=== PATIENT | male | born 1945 | race Caucasian/White ===

== ENCOUNTER → 2017-03-11 | Outpatient (CLI) | payer OTHER ==
[~2017-03-11] MED LIST: ASPI1TAB57 PO; ASPI81; BEDSIDE COMMODE1 MI1; CHOL5000 PO; GLUC500T4 PO; LEVO50TA4 PO; LOPE-1 PO; MELO15TA20 PO; OMEG100046 PO; PRIL20TA2; RANI300T PO; ROSU1TAB10 PO; ROSU5; TOPR25TA2; TURM500C3; VALS160T4 PO; WALKER WHEELS/F1 MIS
== END ==
LOC: CPRE 11:19
PROVIDERS: ATTEND Orthopaedic Surgery Orthopaedic Surgery of the Spine
DX: Z01.810 Encounter for preprocedural cardiovascular examination (principal); Z01.812 Encounter for preprocedural laboratory examination; M16.12 Unilateral primary osteoarthritis, left hip

== ENCOUNTER 2017-03-18 09:59 | Inpatient (IN) | payer OTHER, MEDICARE ==
[~2017-03-18 09:59] MED LIST changes: -ASPI81; -BEDSIDE COMMODE1 MI1; -LOPE-1 PO; -PRIL20TA2; -ROSU5; -TOPR25TA2; -WALKER WHEELS/F1 MIS
[2017-03-18] MEDS ORDERED: SODIUM CHLOR 0.9% 250 ML INJ 250 ML ONE (10:40)
[2017-03-18] MEDS ORDERED: ACETAMINOPHEN 1000 MG/100 ML 100 ML IV ONE (10:40)
[2017-03-18] MEDS ORDERED: VANCOMYCIN HCL 1000 MG VIAL ONE (10:40)
[2017-03-18] MEDS ORDERED: GENTAMICIN SULFATE 80 MG/2 ML VIAL ONE (10:47)
[2017-03-18] MEDS ORDERED: ceFAZolin 2 GM PREMIX 50 ML IV SCH (11:00)
[2017-03-18] MEDS ORDERED: CHLORHEXIDINE GLUCONATE 4% SOLN 120 ML BTL TOPICAL SCH (11:00)
[2017-03-18] MEDS ORDERED: LACTATED RINGER'S 1000 ML IV PRN (11:00)
[2017-03-18] MEDS ORDERED: METOPROLOL TARTRATE 25 MG TAB PO PRN (11:00)
[2017-03-18] MEDS ORDERED: SODIUM CHLORID 0.9% 500 ML IV PRN (11:00)
[2017-03-18] MEDS ORDERED: VANCOMYCIN 1000 MG/NS 250 ML (for <70 kg) IV SCH ×2 (11:00)
[2017-03-18] MEDS ORDERED: POVIDONE IODINE 5% (ANTISEPSIS KIT) 4 APPLICATIONS EACH NARE PRN (11:00)
[2017-03-18] MEDS ORDERED: CHLORHEXIDINE GLUCONATE 2 % 1 PACK (2 CLOTHS) TOPICAL PRN (11:00)
[2017-03-18] MEDS ORDERED: MIDAZOLAM HCL 2 MG/2 ML VIAL IV ONE (12:00)
[2017-03-18] MEDS ORDERED: DEXAMETHASONE SOD PHOS 4 MG/ML VIAL IV ONE (12:00)
[2017-03-18] MEDS ORDERED: LIDOCAINE HCL 1% PF 5 ML SYRINGE OTHER ONE (12:00)
[2017-03-18] MEDS ORDERED: GLYCOPYRROLATE 1 MG/5 ML SYRINGE IV PUSH ONE (12:00)
[2017-03-18] MEDS ORDERED: PROPOFOL 200 MG/20 ML AMP IV ONE (12:00)
[2017-03-18] MEDS ORDERED: ONDANSETRON HCL 4 MG/2 ML VIAL IV PUSH ONE (12:00)
[2017-03-18] MEDS ORDERED: ePHEDrine/NS 25 MG/5 ML SYR IV ONE (12:00)
[2017-03-18] MEDS ORDERED: PHENYLEPH/NS 1000 MCG/10 ML SYR IV ONE (12:00)
[2017-03-18] MEDS ORDERED: NEOSTIGMINE 3 MG/3 ML SYR IV ONE (12:00)
[2017-03-18] MEDS ORDERED: DO NOT ADM ANY ANTICOAGULANT DRUGS PRN (14:40)
--- NOTE | 2017-03-18 14:42 | HHI.PR ---
Immediate Post Op Note Procedure Date: Mar 18, 2017 Pre Op Diagnosis: R Hip Severe OA;Acet Dysplasia Post Op Diagnosis: Same Surgeon: Omar Dueñas MD Boat Cleaning Supervisor(s): Yeimy Pereyra PA-C Procedure: R THR Complications: None Specimen(s) removed: None Estimated blood loss: 400cc Anesthesia: General Drains: None Patient to: PACU Patient Condition: Good Implant/Devices: SEE IMPLANT LOG (if applicable) Date/Time of Procedure: SEE SURGICAL CARE RECORD Omar Dueñas MD Mar 18, 2017 14:42
--- NOTE | 2017-03-18 14:43 | HHI.FF ---
Face to Face Verification Diagnosis: (1) Osteoarthritis of right hip Physical Therapy Gait training, Transfer training, bed to chair Hip: Total hip, Protocol: Right, Posterior hip precautions Right LE Weight Bearing: WB as tolerated Left LE Weight Bearing: WB as tolerated Nursing RN Days per Week: 3 x Week(s): 4 Nursing: Dressing changes (clean incision with alcohol and apply dry, sterile dresing) Additional Instructions PT/INR q Saturday and , call/text results to [facility] [phone] Goal INR 1.5-1.8 I have seen patient Ray Clark on 03/18/17. My clinical findings support the need for the requested home health care services because: High risk of falls I certify that my clinical findings support that this patient is homebound because: Post-op weakness Omar Dueñas MD Mar 18, 2017 14:43
[2017-03-18] MEDS ORDERED: WALKER WHEELS/F1 MIS (14:44)
[2017-03-18] MEDS ORDERED: BEDSIDE COMMODE1 MI1 (14:44)
[2017-03-18] MEDS ORDERED: ALUMINUM/MAGNESIUM/SIMETH 30 ML CUP PO PRN (14:45)
[2017-03-18] MEDS ORDERED: ACETAMINOPHEN/HYDROcodone 325 MG/7.5 MG TAB PO PRN (14:45)
[2017-03-18] MEDS ORDERED: Post-op Orders (for Pharmacy) MISC XX ONE (14:45)
[2017-03-18] MEDS: SODIUM CHLORIDE 0.9% FLUSH 5 ML FLUSH IVF SCH ×2 (14:45→19:52)
[2017-03-18] MEDS ORDERED: SODIUM CHLORIDE 0.9% FLUSH 5 ML FLUSH IVF PRN (14:45)
[2017-03-18] MEDS ORDERED: ONDANSETRON HCL 4 MG/2 ML VIAL IVP PRN (14:45)
[2017-03-18] MEDS: LACTATED RINGER'S 1000 ML INJ 1,000 ML IV SCH (15:00)
--- NOTE | 2017-03-18 15:30 | MP ---
cc: NU WEIR M.D., MARGARET M.D. DATE OF SURGERY: 03/18/2017 PREOPERATIVE DIAGNOSIS Right hip severe osteoarthritis, acetabular dysplasia. POSTOPERATIVE DIAGNOSIS Right hip severe osteoarthritis, acetabular dysplasia. PROCEDURE Right total hip arthroplasty. SURGEON ASpenser MD. EQUIPMENT OPERATOR INTERMODAL YARD Yeimy Pereyra PA-C. ESTIMATED BLOOD LOSS 400 cc. SPECIMEN None. COMPLICATIONS None. ANESTHESIA General. DRAINS None. CONDITION Stable. PLAN OF ACTIVITY As per orders. DETAILS OF PROCEDURE My unit assistant, AVANI Yarbrough, was present for the entire surgical case. She was medically necessary for the entire case because of the complexity of the case and to facilitate the performance of the procedure. The WOOD HEEL FLAP INSERTER at the back table did not have the skill set for this case to manipulate the instruments, e.g., multiple different types of soft tissue retractors, trial implants and permanent implants. The patient was brought into the operating room, had satisfactory anesthesia by Dr. Victoria of the department of anesthesia. The patient was placed in a lateral decubitus position. All pressure points were well-padded. The right hip and lower extremity down to including the toes were prepped and draped in the usual sterile manner. A small posterolateral exposure to the hip was made. All bleeders were individually coagulated. Dissection continued through skin and subcutaneous tissue. The fascia kristin and gluteus christiane was incised in line with the skin incision. A Charnley retractor was placed into the wound to allow better exposure. Great care was made to protect the sciatic nerve. The short external rotators were removed as a group. The hip abductors were preserved. A capsulotomy was performed and the hip was dislocated posteriorly. The patient was found to have severe osteoarthritis involving the hip joint with acetabular dysplasia. Osteotomy on the neck was made at appropriate level. Exposure of the acetabulum was made. The capsule was removed as was the acetabular labrum. Using hemispherical reamers the hip was initially deepened and then reamed to 53 mm in outer diameter. A bicentric Press-Fit type cup was found to be stable and satisfactory. Exposure of the femoral shaft was made. Using the [employer] system it was sequentially broached to a #12 broach. Trial reduction was made with the standard offset, 0 neck, 28 mm ball. The hip was reduced. The patient was found to have satisfactory limb lengths, satisfactory stability and satisfactory range of motion. The hip was then dislocated posteriorly. The #12 standard offset stem was then placed in approximately 15-20 degrees of anteversion with an excellent "fit and fill." A 0 neck, 28 mm ball was assembled onto the trunnion. The hip was then reduced. Again, the patient was found to have satisfactory limb lengths, satisfactory range of motion and satisfactory stability of the hip. Posterior osteophyte was removed off of the acetabulum to prevent postoperative impingement. The short external rotators were repaired as a group with drill holes to the greater trochanter using #2 Tycron suture. The fascia kristin and gluteus christiane was closed with #2 Tycron suture. The subcutaneous tissue was closed in layers with 0 Vicryl and 2-0 Vicryl. The skin was approximated with running subcuticular 2-0 nylon. Sterile dressing was applied. The patient tolerated the procedure well and arrived in the recovery room in stable and satisfactory condition. MD CHERYLE Gunn/HERIBERTO /2:41 PM /3:19 PM
--- NOTE | 2017-03-18 15:44 | RADRPT ---
EXAM DATE/TIME: 03/18/2017 14:56 [place] COMPARISON: No previous studies available for comparison. INDICATIONS : Hardware placement right hip MEDICAL HISTORY : Arthritis. SURGICAL HISTORY : None. ENCOUNTER: Initial ACUITY: 1 day PAIN SCORE: Non-responsive. LOCATION: Right Hip FINDINGS: Status post left hip arthroplasty. The arthroplasty components are in anatomic alignment. No signific ant acute fracture. Remaining osseous structures are intact. CONCLUSION: 1. Status post left hip arthroplasty in anatomic alignment without acute fracture. Allen Kay MD on March 18, 2017 at 15:41 Board Certified Radiologist. This report was verified electronically.
[2017-03-18 15:54] VITALS: BP 140/66; PULSE 56; RESP 17; TEMP 95.8
[2017-03-18] MEDS ORDERED: BISACODYL 10 MG SUPP RECTAL PRN (18:15)
[2017-03-18] MEDS ORDERED: SENNOSIDES 8.6 MG TAB PO PRN (18:15)
[2017-03-18] MEDS ORDERED: LACTULOSE SYRUP 20 GM/30 ML CUP PO PRN (18:15)
--- NOTE | 2017-03-18 18:17 | PD.CONS ---
[facility] By Dr. Vicente Reason for Consult Assist with medical management Primary Care Physician Renee Arias MD Diagnoses: History of Present Illness Patient is a 72-year-old male with primary medical history of HTN, hypothyroidism, arthritis, HLD, history of intestinal cancer who came into the hospital for an elective procedure for his right hip. Patient has been complaining of right hip pain 3 years and has been on and off meloxicam. States meloxicam elevates his blood pressure that he was referred to orthopedic surgeon. Patient is status post right hip total arthroplasty. States he is doing well. Pain is manageable. States that he already ambulated with physical therapy. Denies pain and discomfort. Denies SOB/ dyspnea. Denies chest pain, palpitations, headaches, dizziness. Denies fevers, chills, n/v/d. Denies dysuria. Review of Systems Constitutional: DENIES: Diaphoretic episodes, Fatigue Endocrine: DENIES: Heat/cold intolerance, Polydipsia Eyes: DENIES: Blurred vision, Diplopia Ears, nose, mouth, throat: DENIES: Tinnitus, Hearing loss, Odynophagia Respiratory: DENIES: Apneas, Cough Cardiovascular: DENIES: Chest pain, Palpitations Gastrointestinal: DENIES: Abdominal pain, Black stools Genitourinary: DENIES: Sexual dysfunction, Urinary frequency Musculoskeletal: COMPLAINS OF: Joint pain, Muscle aches Integumentary: DENIES: Abnormal pigmentation Hematologic/lymphatic: DENIES: Bruising, Lymphadenopathy Immunologic/allergic: DENIES: Eczema Neurologic: DENIES: Abnormal gait, Headache Psychiatric: DENIES: Anxiety, Confusion Except as stated in HPI: all other systems reviewed are Neg Past Family Social History Allergies: Coded Allergies: morphine (Verified Allergy, Severe, Itching, 03/18/17) with epidural Past Medical History HTN Hypothyroidism Arthritis History of CA HLD History of intestinal cancer Sleep apnea Past Surgical History Colon resection CABG in 1996 Stent placements Hemorrhoidectomy Reported Medications Reported Meds & Active Scripts Active Reported Vitamin D3 (Cholecalciferol) 5,000 Unit Cap 5,000 Units PO DAILY Fish Oil 1,000 mg Softgel ([place]-3/Dha/Epa/Fish Oil) 1,000 Mg (120 Mg-180 Mg) Capsule 1 Cap PO BID Ranitidine (Ranitidine HCl) 300 Mg Tab 300 Mg PO HS Meloxicam 15 Mg Tab 15 Mg PO DAILY PRN Aspirin 81 (Aspirin) 81 Mg Tabdr 81 Mg PO DAILY Rosuvastatin (Rosuvastatin Calcium) 40 Mg Tab 40 Mg PO DAILY Levothyroxine (Levothyroxine Sodium) 50 Mcg Tab 50 Mcg PO DAILY Valsartan-Hydrochlorothiazide 160-12.5 Mg Tab 1 Tab PO DAILY Active Ordered Medications Current Medications Medications (Trade) Dose Ordered Sig/Vianey Route Start Time Stop Time Status Last Admin Lactated Ringer's 1,000 ml @ 30 mls/hr Q24H PRN IV 03/18/17 11:00 03/21/17 10:59 Sodium Chloride 500 ml @ 30 mls/hr [id number] PRN IV 03/18/17 11:00 03/21/17 10:59 (Lopressor) 25 mg STEAM PLANT OPERATOR PRN PO 03/18/17 11:00 03/21/17 10:59 (Betadine 5% Antisepsis Kit) 1 applic STEAM PLANT OPERATOR PRN EACH NARE 03/18/17 11:00 03/21/17 10:59 (Chlorhexidine 2% Cloth) 3 pack STEAM PLANT OPERATOR PRN TOPICAL 03/18/17 11:00 03/21/17 10:59 (Hibiclens 4% Top Soln) 1 applic ONCE TOPICAL 03/18/17 11:00 03/21/17 10:59 Cefazolin Sodium/ Dextrose 50 ml @ 100 mls/hr STEAM PLANT OPERATOR IV 03/18/17 11:00 03/21/17 10:59 03/18/17 13:41 Vancomycin HCl 1000 mg/Sodium Chloride 250 ml @ 250 mls/hr STEAM PLANT OPERATOR IV 03/18/17 11:00 03/21/17 10:59 (Synthroid) 50 mcg DAILY@0600 PO 03/19/17 06:00 (Pepcid) 20 mg BID PO 03/19/17 09:00 (Lipitor) 80 mg DAILY PO 03/19/17 09:00 Lactated Ringer's 1,000 ml @ 80 mls/hr [id number] IV 03/18/17 16:00 03/18/17 15:00 (NS Flush) 2 ml UNSCH PRN IVF 03/18/17 14:45 (NS Flush) 2 ml BID IVF 03/18/17 14:45 Cefazolin Sodium 1000 mg/Sodium Chloride 100 ml @ 200 mls/hr Q6H IV 03/18/17 20:00 03/19/17 08:29 (Coumadin) Follow Sliding Scale... DAILY@1600 PO 03/19/17 16:00 (Coumadin Booklet) 1 ONCE ONCE XX 03/19/17 16:00 03/19/17 16:01 (Dilaudid Pf Inj) 1 mg Q3H PRN IV PUSH 03/18/17 14:45 ([place] 7.5-325 Mg) 1 tab Q4H PRN PO 03/18/17 14:45 ([place] 7.5-325 Mg) 2 tab Q4H PRN PO 03/18/17 14:45 (Zofran Inj) 4 mg Q6H PRN IVP 03/18/17 14:45 (Colace) 100 mg BID PO 03/19/17 21:00 (Mag-Al Plus Susp Liq) 30 ml Q6H PRN PO 03/18/17 14:45 (Ambien) 5 mg HS PRN PO 03/18/17 21:00 Miscellaneous Information ALL NURSING DEPARTME... UNSCH PRN .XX 03/18/17 14:40 03/19/17 14:39 (Diovan) 160 mg DAILY PO 03/19/17 09:00 (Microzide) 12.5 mg DAILY PO 03/19/17 09:00 Family History Sister had leukemia Mother has Lori Gehrig's disease at age 73 Social History Rare alcohol use Cigar smoker, 40 years Denies illicit drug use Physical Exam Vital Signs Vital Signs Date Time Temp Pulse Resp B/P (MAP) Pulse Ox O2 Delivery O2 Flow Rate FiO2 03/18/17 15:54 95.8 56 17 140/66 (90) 03/18/17 15:22 60 14 138/75 (96) 97 Room Air 03/18/17 15:15 97.4 56 17 133/72 (92) 96 Room Air 03/18/17 15:00 69 15 138/73 (94) 96 Room Air 03/18/17 14:45 76 18 140/70 (93) 98 Room Air 03/18/17 14:40 97.4 74 20 143/69 (93) 99 Simple Mask 6 Physical Exam GENERAL: This is a well-nourished, well-developed patient, in no apparent distress. SKIN: No rashes, ecchymoses or lesions. Cool and dry. HEAD:Normocephalic. No temporal or scalp tenderness. EYES: Pupils equal round and reactive. Extraocular motions intact. No scleral icterus. No injection or drainage. ENT: Nose without bleeding. Throat without erythema. Uvula midline. Airway patent. NECK: Trachea midline. No JVD or lymphadenopathy. Supple, nontender, no meningeal signs. CARDIOVASCULAR: Regular rate and rhythm with 2/6 murmurs. No gallops, or rubs. RESPIRATORY: Clear to auscultation. Breath sounds equal bilaterally. No wheezes , rales, or rhonchi. GASTROINTESTINAL: Abdomen soft, non-tender, nondistended. No guarding. Hypoactive BS MUSCULOSKELETAL: Extremities without clubbing, cyanosis. Right Hip Dsg CDI, trace edema. NEUROLOGICAL: Awake and alert. Oriented to person, place, time. Motor and sensory grossly within normal limits. Normal speech. Imaging Last Impressions Hip and Pelvis X-Ray 03/18/17 0000 Signed Impressions: Service Date/Time: Saturday, March 18, 2017 14:56 - CONCLUSION: 1. Status post left hip arthroplasty in anatomic alignment without acute fracture. Allen Kay MD Assessment and Plan Problem List: (1) Status post right hip replacement ICD Code: Z96.641 - Presence of right artificial hip joint Status: Acute (2) HTN (hypertension) ICD Code: I10 - Essential (primary) hypertension Status: Chronic (3) Hypothyroidism ICD Code: E03.9 - Hypothyroidism, unspecified Status: Chronic (4) Osteoarthritis of right hip ICD Code: M16.11 - Unilateral primary osteoarthritis, right hip Assessment and Plan Patient is a 72-year-old male with primary medical history of HTN, hypothyroidism, arthritis, HLD, history of intestinal cancer who came into the hospital for an elective procedure for his right hip. Status post right total hip arthroplasty - Right hip arthritis - Managed primarily by Dr. Panchal orthopedic team - Physical therapy eval and treat - Pain management O'Brien when necessary, Dilaudid IV for breakthrough pain. Monitor for constipation - Place on bowel regimen. - Monitor H&H. HTN, chronic History of CA, history of CABG History HLD - Continue home medication hydrochlorothiazide 12.5 mg daily, valsartan 160 mg daily - Monitor BP trend Hypothyroidism - Continue home medication levothyroxine 50 g daily - Check TSH Chronic constipation History of intestinal cancer with colon resection - Bowel regimen as above DVT prop Coumadin GI prop Pepcid The exam, history, and the medical decision-making described in the above note were completed with the assistance of the mid-level provider. I reviewed and agree with the findings presented. I attest that I had a [id number] encounter with the patient on the same day, and personally performed and documented my assessment and findings in the medical record. Code Status Full code Discussed Condition With Patient, nursing, Dr. Fletcher Problem Qualifiers (1) Osteoarthritis of right hip: Qualified Codes: M16.11 - Unilateral primary osteoarthritis, right hip Monica Washington Mar 18, 2017 18:17 Rishabh Fletcher DO Mar 18, 2017 19:35
[2017-03-18 19:00] VITALS: BP 121/69; PULSE 73; RESP 16; TEMP 98.1; O2SAT 98
[2017-03-18] MEDS: MAGNESIUM HYDROXIDE SUSP 30 ML CUP PO PRN (19:51)
[2017-03-18] MEDS ORDERED: ZOLPIDEM TARTRATE 5 MG TAB PO PRN (21:00)
[2017-03-19] VITALS (8 sets, daily range): BP systolic 101–128; BP diastolic 58–66; PULSE 70–88; RESP 16–19; TEMP 96.6–98.4; O2SAT 96–97
[2017-03-19] MEDS: LACTATED RINGER'S 1000 ML INJ 1,000 ML IV SCH ×2 (04:30→16:51)
[2017-03-19] MEDS: LEVOTHYROXINE SODIUM 50 MCG TAB PO SCH (05:50)
[2017-03-19 05:52] LABS: AUTOMATED NEUTROPHIL # 6.6 TH/MM3 (1.8-7.7); BASOPHIL % 0.3 % (0.0-2.0); EOSINOPHIL % 0.1 % (0.0-4.0); HEMATOCRIT 33.5 % (39.0-51.0); HEMO FLAGS DIFF FINAL; LYMPH % 12.6 % (9.0-44.0); LYMPHOCYTE # 1.1 TH/MM3 (1.0-4.8); MEAN CELL VOLUME 87.9 FL (80.0-100.0); MEAN CORPUSCULAR HEMOGLOBIN 30.2 PG (27.0-34.0); MEAN CORPUSCULAR HGB CONC 34.3 % (32.0-36.0); MONO % 11.5 % (0.0-8.0); NEUT % 75.5 % (16.0-70.0); PLATELET COUNT 171 TH/MM3 (150-450); RED BLOOD COUNT 3.82 MIL/MM3 (4.50-5.90); RED CELL DISTRIBUTION WIDTH 13.3 % (11.6-17.2); WHITE BLOOD COUNT 8.7 TH/MM3 (4.0-11.0)
[2017-03-19 05:58] LABS: INTERNATIONAL NORMALIZED RATIO 1.2 RATIO; PROTHROMBIN TIME - PATIENT 13.7 SEC (9.8-11.6)
[2017-03-19 06:12] LABS: ALT (GPT) 21 U/L (12-78); ANION GAP 9 MEQ/L (5-15); AST (GOT) 25 U/L (15-37); BICARBONATE 26.6 MEQ/L (21.0-32.0); BLOOD UREA NITROGEN 14 MG/DL (7-18); CHLORIDE 101 MEQ/L (98-107); GLOMERULAR FILTRATION RATE 79 ML/MIN (>89); MAGNESIUM 2.2 MG/DL (1.5-2.5); POTASSIUM 3.8 MEQ/L (3.5-5.1); SODIUM (NA) 137 MEQ/L (136-145)
[2017-03-19 06:20] LABS: ALKALINE PHOSPHATASE 55 U/L (45-117); FREE T4 1.46 NG/DL (0.76-1.46); TOTAL BILIRUBIN ADULT 0.6 MG/DL (0.2-1.0)
--- NOTE | 2017-03-19 07:13 | PD.ORT.PN ---
Subjective Subjective Remarks POD#1 R THR C/O slight light headness while OOB this AM C/O mild post op hip pain No SOB;no chest pain Objective Vitals Vital Signs Date Time Temp Pulse Resp B/P (MAP) Pulse Ox O2 Delivery O2 Flow Rate FiO2 03/19/17 04:00 96.6 74 16 96 03/19/17 00:00 96.6 88 17 110/62 (78) 97 03/18/17 19:00 98.1 73 16 121/69 (86) 98 03/18/17 15:54 95.8 56 17 140/66 (90) 03/18/17 15:22 60 14 138/75 (96) 97 Room Air 03/18/17 15:15 97.4 56 17 133/72 (92) 96 Room Air 03/18/17 15:00 69 15 138/73 (94) 96 Room Air 03/18/17 14:45 76 18 140/70 (93) 98 Room Air 03/18/17 14:40 97.4 74 20 143/69 (93) 99 Simple Mask 6 I/O 03/18/17 03/18/17 03/18/17 03/19/17 03/19/17 03/19/17 07:00 15:00 23:00 07:00 15:00 23:00 Intake Total 1400 ml 580 ml 580 ml Output Total 400 ml Balance 1000 ml 580 ml 580 ml Intake Oral 480 ml 480 ml IV Total 100 ml 100 ml Other 1400 ml Output Estimated Blood Loss 400 ml # Voids 3 32 # Bowel Movements 0 0 Result Diagram: 03/19/17 0454 03/19/17 0454 Other Results Laboratory Tests Test 03/19/17 04:54 Prothromb Time International Ratio 1.2 RATIO Prothrombin Time 13.7 SEC (9.8-11.6) Objective Remarks N/V intact Dressings dry No LLD Assessment & Plan Assessment and Plan Ortho stable Coumadin,TEDS,Sequentials for DVT prophylaxsis PT/rehab Discharge home tomorrow if medically stable Hold Anti-HT Rx this AM Omar Dueñas MD Mar 19, 2017 07:13
[2017-03-19] MEDS: HYDROCHLOROTHIAZIDE 12.5 MG CAP PO SCH (07:27)
[2017-03-19] MEDS: VALSARTAN 160 MG TAB PO SCH (07:27)
[2017-03-19] MEDS ORDERED: NON-FORMULARY DRUG (Valsartan-Hydrochlorothiazide 1 TAB) PO SCH (09:00)
[2017-03-19] MEDS: SODIUM CHLORIDE 0.9% FLUSH 5 ML FLUSH IVF SCH ×2 (09:00→22:19)
[2017-03-19] MEDS: ATORVASTATIN 80 MG TAB PO SCH (09:07)
[2017-03-19] MEDS: FAMOTIDINE 20 MG TAB PO SCH ×2 (09:07→22:18)
[2017-03-19 13:01] LABS: HEMOGLOBIN A1a 1.3 %; HEMOGLOBIN A1b 0.9 %; HEMOGLOBIN Ao 84.3 %; HEMOGLOBIN F 1.1 %; HEMOGLOBIN LA1C 2.4 %
[2017-03-19] MEDS: HYDROmorphone HCL PF 2 MG/ML VIAL IV PUSH PRN ×2 (14:58→22:20)
--- NOTE | 2017-03-19 15:23 | HHI.PR ---
Subjective Remarks Patient states he became dizzy when he got up today. Denies cp/sob. Pain is controlled at this time. afebrile. Objective Vitals Vital Signs Date Time Temp Pulse Resp B/P (MAP) Pulse Ox O2 Delivery O2 Flow Rate FiO2 03/19/17 09:58 97 03/19/17 04:00 96.6 74 16 96 03/19/17 00:00 96.6 88 17 110/62 (78) 97 03/18/17 19:00 98.1 73 16 121/69 (86) 98 03/18/17 15:54 95.8 56 17 140/66 (90) 03/18/17 15:22 60 14 138/75 (96) 97 Room Air I/O 03/18/17 03/18/17 03/18/17 03/19/17 03/19/17 03/19/17 06:59 14:59 22:59 06:59 14:59 22:59 Intake Total 1400 ml 580 ml 580 ml 100 ml Output Total 400 ml Balance 1000 ml 580 ml 580 ml 100 ml Intake Oral 480 ml 480 ml IV Total 100 ml 100 ml 100 ml Other 1400 ml Output Estimated Blood Loss 400 ml # Voids 3 32 # Bowel Movements 0 0 Result Diagram: 03/19/17 0454 03/19/17 0454 Imaging Last Impressions Hip and Pelvis X-Ray 03/18/17 0000 Signed Impressions: Service Date/Time: Saturday, March 18, 2017 14:56 - CONCLUSION: 1. Status post left hip arthroplasty in anatomic alignment without acute fracture. Allen Kay MD Objective Remarks GENERAL: This is a well-nourished, well-developed patient, in no apparent distress. SKIN: No rashes, ecchymoses or lesions. Cool and dry. HEAD:Normocephalic. No temporal or scalp tenderness. EYES: Pupils equal round and reactive. Extraocular motions intact. No scleral icterus. No injection or drainage. ENT: Nose without bleeding. Throat without erythema. Uvula midline. Airway patent. NECK: Trachea midline. No JVD or lymphadenopathy. Supple, nontender, no meningeal signs. CARDIOVASCULAR: Regular rate and rhythm with 2/6 murmurs. No gallops, or rubs. RESPIRATORY: Clear to auscultation. Breath sounds equal bilaterally. No wheezes , rales, or rhonchi. GASTROINTESTINAL: Abdomen soft, non-tender, nondistended. No guarding. Hypoactive BS MUSCULOSKELETAL: Extremities without clubbing, cyanosis. Right Hip Dsg CDI, trace edema. NEUROLOGICAL: Awake and alert. Oriented to person, place, time. Motor and sensory grossly within normal limits. Normal speech. Medications and IVs Current Medications Medications (Trade) Dose Ordered Sig/Vianey Route Start Time Stop Time Status Last Admin Lactated Ringer's 1,000 ml @ 30 mls/hr Q24H PRN IV 03/18/17 11:00 03/21/17 10:59 Sodium Chloride 500 ml @ 30 mls/hr [id number] PRN IV 03/18/17 11:00 03/21/17 10:59 (Lopressor) 25 mg MANAGER UROLOGY PRN PO 03/18/17 11:00 03/21/17 10:59 (Betadine 5% Antisepsis Kit) 1 applic MANAGER UROLOGY PRN EACH NARE 03/18/17 11:00 03/21/17 10:59 (Chlorhexidine 2% Cloth) 3 pack MANAGER UROLOGY PRN TOPICAL 03/18/17 11:00 03/21/17 10:59 (Hibiclens 4% Top Soln) 1 applic ONCE TOPICAL 03/18/17 11:00 03/21/17 10:59 Cefazolin Sodium/ Dextrose 50 ml @ 100 mls/hr MANAGER UROLOGY IV 03/18/17 11:00 03/21/17 10:59 03/18/17 13:41 Vancomycin HCl 1000 mg/Sodium Chloride 250 ml @ 250 mls/hr MANAGER UROLOGY IV 03/18/17 11:00 03/21/17 10:59 (Synthroid) 50 mcg DAILY@0600 PO 03/19/17 06:00 03/19/17 05:50 (Pepcid) 20 mg BID PO 03/19/17 09:00 03/19/17 09:07 (Lipitor) 80 mg DAILY PO 03/19/17 09:00 03/19/17 09:07 Lactated Ringer's 1,000 ml @ 80 mls/hr [id number] IV 03/18/17 16:00 03/18/17 15:00 (NS Flush) 2 ml UNSCH PRN IVF 03/18/17 14:45 (NS Flush) 2 ml BID IVF 03/18/17 14:45 03/19/17 09:00 (Coumadin) Follow Sliding Scale... DAILY@1600 PO 03/19/17 16:00 (Coumadin Booklet) 1 ONCE ONCE XX 03/19/17 16:00 03/19/17 16:01 (Dilaudid Pf Inj) 1 mg Q3H PRN IV PUSH 03/18/17 14:45 03/19/17 14:58 ([place] 7.5-325 Mg) 1 tab Q4H PRN PO 03/18/17 14:45 ([place] 7.5-325 Mg) 2 tab Q4H PRN PO 03/18/17 14:45 (Zofran Inj) 4 mg Q6H PRN IVP 03/18/17 14:45 (Colace) 100 mg BID PO 03/19/17 21:00 (Mag-Al Plus Susp Liq) 30 ml Q6H PRN PO 03/18/17 14:45 (Ambien) 5 mg HS PRN PO 03/18/17 21:00 (Diovan) 160 mg DAILY PO 03/19/17 09:00 (Microzide) 12.5 mg DAILY PO 03/19/17 09:00 (Milk Of Magnesia Liq) 30 ml Q12H PRN PO 03/18/17 18:15 03/18/17 19:51 (Senokot) 17.2 mg Q12H PRN PO 03/18/17 18:15 (Dulcolax Supp) 10 mg DAILY PRN RECTAL 03/18/17 18:15 (Lactulose Liq) 30 ml DAILY PRN PO 03/18/17 18:15 A/P Problem List: (1) Status post right hip replacement ICD Code: Z96.641 - Presence of right artificial hip joint Status: Acute (2) HTN (hypertension) ICD Code: I10 - Essential (primary) hypertension Status: Chronic (3) Hypothyroidism ICD Code: E03.9 - Hypothyroidism, unspecified Status: Chronic (4) Osteoarthritis of right hip ICD Code: M16.11 - Unilateral primary osteoarthritis, right hip Assessment and Plan Patient is a 72-year-old male with primary medical history of HTN, hypothyroidism, arthritis, HLD, history of intestinal cancer who came into the hospital for an elective procedure for his right hip. Status post right total hip arthroplasty - Right hip arthritis - Managed primarily by Dr. Panchal orthopedic team - Physical therapy eval and treat - Pain management [place] when necessary, Dilaudid IV for breakthrough pain. Monitor for constipation - Place on bowel regimen. - Monitor H&H. HTN, chronic History of [place], history of CABG History HLD - Continue home medication hydrochlorothiazide 12.5 mg daily, valsartan 160 mg daily - Monitor BP trend - check orthostatics since patient felt dizzy upon standing. Hypothyroidism - Continue home medication levothyroxine 50 g daily - Check TSH Chronic constipation History of intestinal cancer with colon resection - Bowel regimen as above DVT prop Coumadin GI prop Pepcid Problem Qualifiers (1) Osteoarthritis of right hip: Qualified Codes: M16.11 - Unilateral primary osteoarthritis, right hip Clay Welch MD Mar 19, 2017 15:23
[2017-03-19] MEDS: WARFARIN SOD 5 MG TAB PO SCH (16:23)
--- NOTE | 2017-03-19 20:22 | HHI.PR ---
Subjective Remarks NOT seen Objective Vitals Vital Signs Date Time Temp Pulse Resp B/P (MAP) Pulse Ox O2 Delivery O2 Flow Rate FiO2 03/19/17 16:00 97.1 72 16 128/59 (82) 96 03/19/17 15:28 16 03/19/17 12:00 98.4 70 16 125/63 (83) 97 03/19/17 09:58 97 03/19/17 08:00 96.7 86 16 101/58 (72) 97 03/19/17 04:00 96.6 74 16 96 03/19/17 00:00 96.6 88 17 110/62 (78) 97 I/O 03/18/17 03/18/17 03/18/17 03/19/17 03/19/17 03/19/17 07:00 15:00 23:00 07:00 15:00 23:00 Intake Total 1400 ml 580 ml 580 ml 700 ml Output Total 400 ml 800 ml Balance 1000 ml 580 ml 580 ml -100 ml Intake Oral 480 ml 480 ml 600 ml IV Total 100 ml 100 ml 100 ml Other 1400 ml Output Urine Total 800 ml Estimated Blood Loss 400 ml # Voids 3 32 # Bowel Movements 0 0 0 Result Diagram: 03/19/17 0454 03/19/17 0454 Imaging Last Impressions Hip and Pelvis X-Ray 03/18/17 0000 Signed Impressions: Service Date/Time: Saturday, March 18, 2017 14:56 - CONCLUSION: 1. Status post left hip arthroplasty in anatomic alignment without acute fracture. Allen Kay MD Objective Remarks GENERAL: This is a well-nourished, well-developed patient, in no apparent distress. SKIN: No rashes, ecchymoses or lesions. Cool and dry. HEAD:Normocephalic. No temporal or scalp tenderness. EYES: Pupils equal round and reactive. Extraocular motions intact. No scleral icterus. No injection or drainage. ENT: Nose without bleeding. Throat without erythema. Uvula midline. Airway patent. NECK: Trachea midline. No JVD or lymphadenopathy. Supple, nontender, no meningeal signs. CARDIOVASCULAR: Regular rate and rhythm with 2/6 murmurs. No gallops, or rubs. RESPIRATORY: Clear to auscultation. Breath sounds equal bilaterally. No wheezes , rales, or rhonchi. GASTROINTESTINAL: Abdomen soft, non-tender, nondistended. No guarding. Hypoactive BS MUSCULOSKELETAL: Extremities without clubbing, cyanosis. Right Hip Dsg CDI, trace edema. NEUROLOGICAL: Awake and alert. Oriented to person, place, time. Motor and sensory grossly within normal limits. Normal speech. A/P Problem List: (1) Status post right hip replacement ICD Code: Z96.641 - Presence of right artificial hip joint Status: Acute (2) HTN (hypertension) ICD Code: I10 - Essential (primary) hypertension Status: Chronic (3) Hypothyroidism ICD Code: E03.9 - Hypothyroidism, unspecified Status: Chronic (4) Osteoarthritis of right hip ICD Code: M16.11 - Unilateral primary osteoarthritis, right hip Assessment and Plan Patient is a 72-year-old male with primary medical history of HTN, hypothyroidism, arthritis, HLD, history of intestinal cancer who came into the hospital for an elective procedure for his right hip. Status post right total hip arthroplasty - Right hip arthritis - Managed primarily by Dr. Panchal orthopedic team - Physical therapy eval and treat - Pain management [place] when necessary, Dilaudid IV for breakthrough pain. Monitor for constipation - Place on bowel regimen. - Monitor H&H. HTN, chronic History of [place], history of CABG History HLD - Continue home medication hydrochlorothiazide 12.5 mg daily, valsartan 160 mg daily - Monitor BP trend - check orthostatics since patient felt dizzy upon standing. Hypothyroidism - Continue home medication levothyroxine 50 g daily - Check TSH Chronic constipation History of intestinal cancer with colon resection - Bowel regimen as above DVT prop Coumadin GI prop Pepcid Problem Qualifiers (1) Osteoarthritis of right hip: Qualified Codes: M16.11 - Unilateral primary osteoarthritis, right hip Renaldo Foote MD Mar 19, 2017 20:22
[2017-03-19] MEDS: DOCUSATE SODIUM 100 MG CAP PO SCH (22:18)
[2017-03-19] MEDS: MAGNESIUM HYDROXIDE SUSP 30 ML CUP PO PRN (22:21)
[2017-03-20 00:43] VITALS: BP_SYST 111; BP_SYST 84; BP_SYST 98; BP_DIAS 60; BP_DIAS 63; PULSE 68; RESP 20; TEMP 97.9; O2SAT 97
[2017-03-20 04:02] VITALS: BP 122/69; PULSE 88; RESP 20; TEMP 97.8; O2SAT 96
[2017-03-20] MEDS: LACTATED RINGER'S 1000 ML INJ 1,000 ML IV SCH ×2 (05:16→18:10)
[2017-03-20] MEDS: LEVOTHYROXINE SODIUM 50 MCG TAB PO SCH (05:17)
[2017-03-20 06:45] LABS: INTERNATIONAL NORMALIZED RATIO 1.2 RATIO; PROTHROMBIN TIME - PATIENT 13.4 SEC (9.8-11.6)
--- NOTE | 2017-03-20 07:36 | PD.ORT.PN ---
Subjective Subjective Remarks pt was unable to ambulate yesterday with therapy due to hypotension feeling better this AM c/o post op soreness involving right hip Objective Vitals Vital Signs Date Time Temp Pulse Resp B/P (MAP) Pulse Ox O2 Delivery O2 Flow Rate FiO2 03/20/17 04:02 97.8 88 20 122/69 (86) 96 03/20/17 00:43 97.9 68 20 111/63 (79) 97 84/60 (68) 98/63 (75) 03/19/17 21:45 97 03/19/17 21:08 98.0 75 19 113/66 (82) 97 03/19/17 16:00 97.1 72 16 128/59 (82) 96 03/19/17 15:28 16 03/19/17 12:00 98.4 70 16 125/63 (83) 97 03/19/17 09:58 97 03/19/17 08:00 96.7 86 16 101/58 (72) 97 I/O 03/19/17 03/19/17 03/19/17 03/20/17 03/20/17 03/20/17 07:00 15:00 23:00 07:00 15:00 23:00 Intake Total 580 ml 700 ml 380 ml Output Total 800 ml 1400 ml Balance 580 ml -100 ml -1020 ml Intake Oral 480 ml 600 ml 380 ml IV Total 100 ml 100 ml Output Urine Total 800 ml 1400 ml # Voids 32 # Bowel Movements 0 0 Result Diagram: 03/19/17 0454 03/19/17 0454 Other Results Laboratory Tests Test 03/20/17 05:43 Prothromb Time International Ratio 1.2 RATIO Prothrombin Time 13.4 SEC (9.8-11.6) Objective Remarks right hip dressing dry and intact ice in place N/V intact no calf tenderness No LLD Assessment & Plan Assessment and Plan POD #2 s/p R GALEN repeat CBC this am Coumadin,TEDS,Sequentials for DVT prophylaxsis PT-WBAT Discharge home today if able to get up and ambulate safely with no probs with blood pressure otherwise will d/c home tomorrow with c PT and nursing norco rx in chart Yeimy Pereyra Mar 20, 2017 07:36
[2017-03-20 08:00] VITALS: BP_SYST 120; BP_SYST 126; BP_SYST 91; BP_DIAS 60; BP_DIAS 69; BP_DIAS 72; PULSE 67; RESP 18; TEMP 98.7; O2SAT 98
[2017-03-20] MEDS: ATORVASTATIN 80 MG TAB PO SCH (08:19)
[2017-03-20] MEDS: FAMOTIDINE 20 MG TAB PO SCH ×2 (08:19→20:51)
[2017-03-20] MEDS: DOCUSATE SODIUM 100 MG CAP PO SCH ×2 (08:19→20:51)
[2017-03-20] MEDS: SODIUM CHLORIDE 0.9% FLUSH 5 ML FLUSH IVF SCH ×2 (08:20→20:51)
[2017-03-20] MEDS: VALSARTAN 160 MG TAB PO SCH (08:20)
[2017-03-20] MEDS: HYDROCHLOROTHIAZIDE 12.5 MG CAP PO SCH (08:21)
[2017-03-20 09:31] LABS: HEMATOCRIT 33.6 % (39.0-51.0); MEAN CELL VOLUME 89.1 FL (80.0-100.0); MEAN CORPUSCULAR HEMOGLOBIN 30.7 PG (27.0-34.0); MEAN CORPUSCULAR HGB CONC 34.5 % (32.0-36.0); PLATELET COUNT 173 TH/MM3 (150-450); RED BLOOD COUNT 3.78 MIL/MM3 (4.50-5.90); RED CELL DISTRIBUTION WIDTH 13.3 % (11.6-17.2); REVIEW FLAG FINAL; WHITE BLOOD COUNT 9.2 TH/MM3 (4.0-11.0)
[2017-03-20 12:00] VITALS: BP 124/69; PULSE 73; RESP 18; TEMP 97.5; O2SAT 98; O2SAT 99
--- NOTE | 2017-03-20 12:55 | HHI.PR ---
Subjective Remarks Follow-up orthostasis. Was orthostatic and symptomatic despite warnings. He is feeling better. BP meds held this morning. Discussed with RN Objective Vitals Vital Signs Date Time Temp Pulse Resp B/P (MAP) Pulse Ox O2 Delivery O2 Flow Rate FiO2 03/20/17 08:00 98.7 67 18 120/69 (86) 98 126/72 (90) 91/60 (70) 03/20/17 04:02 97.8 88 20 122/69 (86) 96 03/20/17 00:43 97.9 68 20 111/63 (79) 97 84/60 (68) 98/63 (75) 03/19/17 21:45 97 03/19/17 21:08 98.0 75 19 113/66 (82) 97 03/19/17 16:00 97.1 72 16 128/59 (82) 96 03/19/17 15:28 16 I/O 03/19/17 03/19/17 03/19/17 03/20/17 03/20/17 03/20/17 06:59 14:59 22:59 06:59 14:59 22:59 Intake Total 580 ml 700 ml 380 ml Output Total 800 ml 1400 ml Balance 580 ml -100 ml -1020 ml Intake Oral 480 ml 600 ml 380 ml IV Total 100 ml 100 ml Output Urine Total 800 ml 1400 ml # Voids 32 # Bowel Movements 0 0 Result Diagram: 03/20/17 0852 03/19/17 0454 Imaging Last Impressions Hip and Pelvis X-Ray 03/18/17 0000 Signed Impressions: Service Date/Time: Saturday, March 18, 2017 14:56 - CONCLUSION: 1. Status post left hip arthroplasty in anatomic alignment without acute fracture. Allen Kay MD Objective Remarks GENERAL: This is a well-nourished, well-developed patient, in no apparent distress. SKIN: No rashes, ecchymoses or lesions. Cool and dry. CARDIOVASCULAR: Regular rate and rhythm with 2/6 murmurs. No gallops, or rubs. RESPIRATORY: Clear to auscultation. Breath sounds equal bilaterally. No wheezes , rales, or rhonchi. GASTROINTESTINAL: Abdomen soft, non-tender, nondistended. No guarding. Normoactive bowel sounds MUSCULOSKELETAL: Extremities without clubbing, cyanosis. Right Hip Dsg CDI, trace edema. NEUROLOGICAL: Awake and alert. Oriented to person, place, time. Motor and sensory grossly within normal limits. Normal speech. A/P Problem List: (1) Status post right hip replacement ICD Code: Z96.641 - Presence of right artificial hip joint Status: Acute (2) HTN (hypertension) ICD Code: I10 - Essential (primary) hypertension Status: Chronic (3) Hypothyroidism ICD Code: E03.9 - Hypothyroidism, unspecified Status: Chronic (4) Osteoarthritis of right hip ICD Code: M16.11 - Unilateral primary osteoarthritis, right hip Assessment and Plan Patient is a 72-year-old male with primary medical history of HTN, hypothyroidism, arthritis, HLD, history of intestinal cancer who came into the hospital for an elective procedure for his right hip. Status post right total hip arthroplasty - Right hip arthritis - Managed primarily by Dr. Panchal orthopedic team - Physical therapy eval and treat - Pain management [place] when necessary, Dilaudid IV for breakthrough pain. Monitor for constipation - Place on bowel regimen. - Monitor H&H. HTN, chronic currently orthostatic History of [place], history of CABG History HLD - Hold home medication hydrochlorothiazide 12.5 mg daily, valsartan 160 mg daily. Continue IV hydration. Fall precautions - Monitor BP trend - Repeat orthostatics Anemia secondary to acute blood loss. Stable continue to monitor Hypothyroidism - Continue home medication levothyroxine 50 g daily -TSH therapeutic Chronic constipation History of intestinal cancer with colon resection - Bowel regimen as above DVT prop Coumadin GI prop Pepcid Discharge Planning Possible discharge later today if resolved orthostasis. We'll continue to hold BP medication and monitor BP outpatient with visiting nurse Problem Qualifiers (1) Osteoarthritis of right hip: Qualified Codes: M16.11 - Unilateral primary osteoarthritis, right hip Renaldo Foote MD Mar 20, 2017 12:55
[2017-03-20 16:00] VITALS: BP_SYST 115; BP_SYST 116; BP_SYST 139; BP_DIAS 62; BP_DIAS 68; BP_DIAS 71; PULSE 77; RESP 18; TEMP 98.3; O2SAT 97
[2017-03-20] MEDS: WARFARIN SOD 5 MG TAB PO SCH (16:00)
[2017-03-20 20:00] VITALS: BP 143/67; PULSE 77; RESP 17; TEMP 97; O2SAT 97
[2017-03-20] MEDS: ACETAMINOPHEN/HYDROcodone 325 MG/7.5 MG TAB PO PRN (20:51)
[2017-03-21] VITALS: BP 111/65; PULSE 67; RESP 17; TEMP 97.7; O2SAT 97
[2017-03-21] MEDS: ACETAMINOPHEN/HYDROcodone 325 MG/7.5 MG TAB PO PRN (03:22)
[2017-03-21 04:00] VITALS: BP 105/58; PULSE 65; RESP 17; TEMP 96.4; O2SAT 97
[2017-03-21 05:30] VITALS: BP_SYST 108; BP_SYST 112; BP_SYST 135; BP_DIAS 56; BP_DIAS 58; BP_DIAS 67; PULSE 76
[2017-03-21] MEDS: LEVOTHYROXINE SODIUM 50 MCG TAB PO SCH (06:00)
[2017-03-21 06:23] LABS: INTERNATIONAL NORMALIZED RATIO 1.2 RATIO; PROTHROMBIN TIME - PATIENT 13.1 SEC (9.8-11.6)
[2017-03-21 07:50] LABS: AUTOMATED NEUTROPHIL # 5.9 TH/MM3 (1.8-7.7); BASOPHIL % 0.4 % (0.0-2.0); EOSINOPHIL % 0.6 % (0.0-4.0); HEMATOCRIT 30.4 % (39.0-51.0); HEMO FLAGS DIFF FINAL; LYMPH % 12.4 % (9.0-44.0); MEAN CELL VOLUME 88.9 FL (80.0-100.0); MEAN CORPUSCULAR HEMOGLOBIN 30.5 PG (27.0-34.0); MEAN CORPUSCULAR HGB CONC 34.3 % (32.0-36.0); MONO % 11.1 % (0.0-8.0); NEUT % 75.5 % (16.0-70.0); PLATELET COUNT 145 TH/MM3 (150-450); RED BLOOD COUNT 3.42 MIL/MM3 (4.50-5.90); RED CELL DISTRIBUTION WIDTH 13.1 % (11.6-17.2); WHITE BLOOD COUNT 7.9 TH/MM3 (4.0-11.0)
[2017-03-21 08:00] VITALS: BP_SYST 107; BP_SYST 111; BP_SYST 120; BP_DIAS 68; BP_DIAS 72; PULSE 71; RESP 18; TEMP 97.2; O2SAT 98
[2017-03-21 08:27] LABS: BICARBONATE 26.7 MEQ/L (21.0-32.0); MAGNESIUM 2.3 MG/DL (1.5-2.5); POTASSIUM 3.7 MEQ/L (3.5-5.1)
[2017-03-21] MEDS: SODIUM CHLORIDE 0.9% FLUSH 5 ML FLUSH IVF SCH (09:00)
--- NOTE | 2017-03-21 09:04 | HHI.PR ---
Subjective Remarks Follow-up orthostatic vital signs. Still mildly orthostatic but asymptomatic. Patient also reports of 11 episodes of loose stools since yesterday last bowel movement with consistency. Denies fever, chills, nausea, bloody and mucoid stools. Discussed with RN, patient can be discharged later today pending repeat orthostatics Objective Vitals Vital Signs Date Time Temp Pulse Resp B/P (MAP) Pulse Ox O2 Delivery O2 Flow Rate FiO2 03/21/17 05:30 76 135/67 (89) 112/56 (74) 108/58 (75) 03/21/17 04:00 96.4 65 17 105/58 (74) 97 03/21/17 00:00 97.7 67 17 111/65 (80) 97 03/20/17 20:00 97.0 77 17 143/67 (92) 97 03/20/17 16:00 98.3 77 18 139/68 (91) 97 115/71 (86) 116/62 (80) 03/20/17 12:00 98 03/20/17 12:00 97.5 73 18 124/69 (87) 99 I/O 03/20/17 03/20/17 03/20/17 03/21/17 03/21/17 03/21/17 07:00 15:00 23:00 07:00 15:00 23:00 Intake Total 380 ml 720 ml 956 ml 871 ml Output Total 1400 ml 150 ml 400 ml Balance -1020 ml 570 ml 956 ml 471 ml Intake Oral 380 ml 720 ml 240 ml 360 ml IV Total 716 ml 511 ml Output Urine Total 1400 ml 150 ml 400 ml # Voids 3 2 2 # Bowel Movements 3 2 2 Result Diagram: 03/21/1717 03/21/1717 Imaging Last Impressions Hip and Pelvis X-Ray 03/18/17 0000 Signed Impressions: Service Date/Time: Saturday, March 18, 2017 14:56 - CONCLUSION: 1. Status post left hip arthroplasty in anatomic alignment without acute fracture. Allen Kay MD Objective Remarks GENERAL: This is a well-nourished, well-developed patient, in no apparent distress. SKIN: No rashes, ecchymoses or lesions. Cool and dry. CARDIOVASCULAR: Regular rate and rhythm with 2/6 murmurs. No gallops, or rubs. RESPIRATORY: Clear to auscultation. Breath sounds equal bilaterally. No wheezes , rales, or rhonchi. GASTROINTESTINAL: Abdomen soft, non-tender, nondistended. No guarding. Normoactive bowel sounds MUSCULOSKELETAL: Extremities without clubbing, cyanosis. Right Hip Dsg CDI, trace edema. NEUROLOGICAL: Awake and alert. Oriented to person, place, time. Motor and sensory grossly within normal limits. Normal speech. No significant change in PE from previous A/P Problem List: (1) Status post right hip replacement ICD Code: Z96.641 - Presence of right artificial hip joint Status: Acute (2) HTN (hypertension) ICD Code: I10 - Essential (primary) hypertension Status: Chronic (3) Hypothyroidism ICD Code: E03.9 - Hypothyroidism, unspecified Status: Chronic (4) Osteoarthritis of right hip ICD Code: M16.11 - Unilateral primary osteoarthritis, right hip Assessment and Plan Patient is a 72-year-old male with primary medical history of HTN, hypothyroidism, arthritis, HLD, history of intestinal cancer who came into the hospital for an elective procedure for his right hip. Status post right total hip arthroplasty - Right hip arthritis - Managed primarily by Dr. Panchal orthopedic team - Physical therapy eval and treat - Pain management [place] when necessary, Dilaudid IV for breakthrough pain. Monitor for constipation - Place on bowel regimen. - Monitor H&H. HTN, currently orthostatic secondary to dehydration from loose stools and pain med. It is improving and he is asymptomatic. History of [place], history of CABG History HLD - Hold home medication hydrochlorothiazide 12.5 mg daily, valsartan 160 mg daily. Discontinue IV hydration since he has adequate oral intake and diarrhea is resolving. Fall precautions - Monitor BP trend - Repeat orthostatics prior to discharge Anemia secondary to acute blood loss. Stable continue to monitor Hypothyroidism - Continue home medication levothyroxine 50 g daily -TSH therapeutic Chronic constipation History of intestinal cancer with colon resection - Bowel regimen as above hold if having diarrhea DVT prop Coumadin GI prop Pepcid Discharge Planning Possible discharge later today if resolved orthostasis. We'll continue to hold BP medication and monitor BP outpatient with visiting nurse Problem Qualifiers (1) Osteoarthritis of right hip: Qualified Codes: M16.11 - Unilateral primary osteoarthritis, right hip Renaldo Foote MD Mar 21, 2017 09:04
[2017-03-21 09:45] VITALS: O2SAT 96
[2017-03-21] MEDS: ATORVASTATIN 80 MG TAB PO SCH (09:47)
[2017-03-21] MEDS: FAMOTIDINE 20 MG TAB PO SCH (09:47)
--- NOTE | 2017-03-21 10:07 | PD.ORT.PN ---
Subjective Subjective Remarks no CP/SOB. no issues. Participating in PT Objective Vitals Vital Signs Date Time Temp Pulse Resp B/P (MAP) Pulse Ox O2 Delivery O2 Flow Rate FiO2 03/21/17 08:00 97.2 71 18 120/72 (88) 98 111/72 (85) 107/68 (81) 03/21/17 05:30 76 135/67 (89) 112/56 (74) 108/58 (75) 03/21/17 04:00 96.4 65 17 105/58 (74) 97 03/21/17 00:00 97.7 67 17 111/65 (80) 97 03/20/17 20:00 97.0 77 17 143/67 (92) 97 03/20/17 16:00 98.3 77 18 139/68 (91) 97 115/71 (86) 116/62 (80) 03/20/17 12:00 98 03/20/17 12:00 97.5 73 18 124/69 (87) 99 I/O 03/20/17 03/20/17 03/20/17 03/21/17 03/21/17 03/21/17 07:00 15:00 23:00 07:00 15:00 23:00 Intake Total 380 ml 720 ml 956 ml 871 ml Output Total 1400 ml 150 ml 400 ml Balance -1020 ml 570 ml 956 ml 471 ml Intake Oral 380 ml 720 ml 240 ml 360 ml IV Total 716 ml 511 ml Output Urine Total 1400 ml 150 ml 400 ml # Voids 3 2 2 # Bowel Movements 3 2 2 Result Diagram: 03/21/1771603/21/17716 Other Results Laboratory Tests Test 03/21/17 05:40 Prothromb Time International Ratio 1.2 RATIO Prothrombin Time 13.1 SEC (9.8-11.6) Objective Remarks right hip dressing dry and intact ice in place N/V intact no calf tenderness No LLD Assessment & Plan Assessment and Plan POD #3 s/p R GALEN doing well. no issues. Hb 10. INR 1.2. give 5mg coumadin, goal INR 1.6 Coumadin,TEDS,Sequentials for DVT prophylaxsis PT-WBAT Discharge home today with [facility]HC if able to get up and ambulate safely with no probs with blood pressure norco rx in chart Edgardo Dunham Jr., MD Mar 21, 2017 10:07
[2017-03-21] MEDS ORDERED: LOPE-1 PO (11:09)
[2017-03-21] MEDS ORDERED: LOPERAMIDE HCL 2 MG CAP PO PRN (11:15)
[2017-03-21 12:00] VITALS: BP 112/70; PULSE 74; RESP 18; TEMP 96.1; O2SAT 97
== END 2017-03-21 14:41 | disposition home health service (06) | DRG 470 ==
LOC: HSDI 09:59 → N06B 15:31
PROVIDERS: ADMIT Orthopaedic Surgery Orthopaedic Surgery of the Spine; ATTEND Orthopaedic Surgery Orthopaedic Surgery of the Spine
PROC: 0SR90JA Replacement of Right Hip Joint with Synthetic Substitute, Uncemented, Open Approach (ICD-10-PCS; principal; 2017-03-18 12:39)
DX: M16.11 Unilateral primary osteoarthritis, right hip (principal); J44.9 Chronic obstructive pulmonary disease, unspecified; D62 Acute posthemorrhagic anemia; E86.0 Dehydration; Q65.89 Other specified congenital deformities of hip; I10 Essential (primary) hypertension; E03.9 Hypothyroidism, unspecified; M25.751 Osteophyte, right hip; E78.5 Hyperlipidemia, unspecified; I25.2 Old myocardial infarction; K59.09 Other constipation; I95.1 Orthostatic hypotension; R19.7 Diarrhea, unspecified; I73.9 Peripheral vascular disease, unspecified; K21.9 Gastro-esophageal reflux disease without esophagitis; G47.30 Sleep apnea, unspecified; F17.290 Nicotine dependence, other tobacco product, uncomplicated; Z85.038 Personal history of other malignant neoplasm of large intestine; Z88.5 Allergy status to narcotic agent; Z95.1 Presence of aortocoronary bypass graft; Z95.5 Presence of coronary angioplasty implant and graft
CPT/HCPCS: 73501; 80048; 80053; 83036; 83735; 84100; 84439; 84443; 85025; 85027; 85610; 86850; 86900; 86901; 86920; 94150; C1776; J0131; J0690; J1100; J1170; J1580; J2250; J2370; J2405; J2710; J3010; J3370; J7050; J7120; L1830